=== PATIENT | female | born 1995 | race Asian ===

== ENCOUNTER 2016-07-11 18:03 | Emergency (ER) | payer BC, MEDICAID ==
[2016-07-11 19:03] VITALS: BP 109/72
--- NOTE | 2016-07-11 19:41 | UC ---
Throat Pain/Nasal Hank HPI - HPI Summary HPI Summary: 21 female presents accompanied by and daughter complaining of sore throat when swallowing and nasal congestion that began Wednesday07/07/16. This morning she woke up with right ear pain/fullness that radiated into her jaw. She states the ear pain is worse when laying down. Slight language barrier and hard to get a history. Both and patient state she did have a fever/ chills however has been taking tylenol. The tylenol has helped with the fever. They did not take her temperature. Last dose of Tylenol was last night, patient denied Tylenol while in office. Patient also complains of body aches. Denies cough, difficulty breathing and chest pain. Admits to headache and feeling fatigued. Has also been taking cepacol OTC for sore throat which has helped. Denies nausea, abdominal pain, and vomiting. No known sick contacts. She did not have the flu shot this year. Does not use tobacco. No PMHx. - History of Current Complaint Chief Complaint: UCRespiratory Stated Complaint: SORE THROAT Time Seen by Provider: 07/11/16 19:24 Hx Obtained From: Patient, Family/Hair Boiler - Hx Last Menstrual Period: 07/08/16 ?: No Severity: Worse Since: Pain Intensity: 5 Pain Scale Used: 0-10 Numeric Cough: None Associated Signs & Symptoms: Positive: Dysphagia, Nasal Discharge, Fever. Negative: Wheezing, Sinus Discomfort, Vomiting - Allergies/Home Medications Allergies/Adverse Reactions: Allergies Allergy/AdvReac Type Severity Reaction Status Date / Time No Known Allergies Allergy Verified 07/11/16 18:45 Home Medications: Home Medications Menthol (Mouth-Throat) [Cepacol Sore Throat] 5.4 mg MT PRN 07/11/16 [History] PMH/Surg Hx/FS Hx/Imm Hx - Surgical History Surgical History: None - Family History Known Family History: Positive: Unknown - Social History Alcohol Use: None Substance Use Type: None Smoking Status (MU): Never Smoked Tobacco - Immunization History Most Recent Influenza Vaccination: 04/09/15 Most Recent Tetanus Shot: 02/25/15 Most Recent Pneumonia Vaccination: n/a Review of Systems Constitutional: Fever, Chills, Fatigue Skin: Negative Eyes: Negative ENT: Sore Throat, Ear Ache, Nasal Discharge Respiratory: Negative Cardiovascular: Negative Gastrointestinal: Negative Genitourinary: Negative Motor: Negative Neurovascular: Negative Musculoskeletal: Myalgia Neurological: Headache Psychological: Negative All Other Systems Reviewed And Are Negative: Yes Physical Exam Triage Information Reviewed: Yes Appearance: Well-Appearing, No Pain Distress, Well-Nourished Vital Signs: Initial Vital Signs Temp 97.9 F 07/11/16 18:42 Pulse 100 07/11/16 18:42 Resp 16 07/11/16 18:42 BP 109/72 07/11/16 18:42 Pulse Ox 100 07/11/16 18:42 Vital Signs Reviewed: Yes Eyes: Positive: Conjunctiva Clear ENT: Positive: Hearing grossly normal, Pharyngeal erythema, Nasal congestion, TMs normal - effusion/fluid behind right TM., Tonsillar swelling. Negative: TM bulging, TM dull, TM red, Tonsillar exudate Dental Exam: Normal Dental: Negative: Percussion Tenderness @ Neck: Positive: Supple, Nontender, No Lymphadenopathy Respiratory: Positive: Chest non-tender, Lungs clear, Normal breath sounds, No respiratory distress Cardiovascular: Positive: RRR, No Murmur, Pulses Normal, Brisk Capillary Refill , Tachycardia Abdomen Description: Positive: Nontender, No Organomegaly, Soft Bowel Sounds: Positive: Present Musculoskeletal Exam: Normal Neurological Exam: Normal Psychological Exam: Normal Skin Exam: Normal Throat Pain/Nasal Course/Dx - Course Course Of Treatment: Strep and influenza cultures obtained due to symptoms and difficult history. Strep was positive, influenza negative. Given first dose of amoxicillin in office. Patient will be instructed to take OTC Claritin to help with eustachian tube dysfunction and congestion along with antibiotics. Also will be prescribed Flonase. Continue cepacol and tylenol as needed. informed to use chloraseptic spray to help with sore throat. - Differential Dx/Diagnosis Differential Diagnosis/HQI/PQRI: Influenza, Laryngitis, Mononucleosis, Otitis Media, Pharyngitis, Sinusitis, URI Provider Diagnoses: Streptococcus Pharyngitis Discharge - Discharge Plan Condition: Stable Disposition: HOME Prescriptions: Amoxicillin CAP* 500 mg PO Q12H #20 cap Fluticasone NASAL SPRAY 50MCG* [Flonase NASAL SPRAY 50MCG*] 2 spray BOTH NARES DAILY #1 btl Patient Education Materials: Strep Throat (ED) Referrals: No Primary Care Phys,NOPCP [Primary Care Provider] - [facility] [Outside] Additional Instructions: Take OTC Claritin and Sudafed to help with Eustachian tube dysfunction (fluid behind ear drum) and congestion along with prescribed antibiotics. Also use Flonase nasal spray as prescribed. Continue Cepacol and Tylenol as needed. Try using Chloraseptic spray to help with sore throat. Hot showers will help with congestion. If symptoms worsen or do not improve please return to . Follow-up with primary care doctor.
[2016-07-11] MEDS ORDERED: Amoxicillin PO (*) 500 MG CAP PO ONE (19:58)
== END 2016-07-11 20:00 | disposition home or self-care (01) ==
LOC: UCEAST 18:03
DX: J02.0 Streptococcal pharyngitis (principal); R09.81 Nasal congestion
CPT/HCPCS: 87502; 87651; 99212; A9270-GY; G0463